=== PATIENT | male | born 1975 | race Caucasian/White ===

== ENCOUNTER 2016-08-17 05:45 | Emergency (ER) | payer MEDICAID ==
[~2016-08-17] VITALS: Ht 170.2 cm; Wt 92.4 kg
[2016-08-17 05:47] VITALS: BP 141/83
[2016-08-17 07:49] LABS: ACETAMINOPHEN < 2 mcg/mL (10-30); BLOOD UREA NITROGEN 17 mg/dL (7-18)
[2016-08-17 08:13] LABS: DAU SCREEN DISCLAIMER
== END 2016-08-17 09:27 | disposition home or self-care (01) ==
LOC: ED 07:33
DX: F32.0 Major depressive disorder, single episode, mild (principal); Z59.0 Homelessness; Z87.891 Personal history of nicotine dependence
CPT/HCPCS: 36415; 80048; 80307; 80329; 82040; 85025; 99284; G0480

== ENCOUNTER 2016-09-01 20:43 | Observation (INO) | payer MEDICAID ==
[~2016-09-01] VITALS: Ht 167.6 cm; Wt 74.0 kg
[2016-09-01 22:39] LABS: BLOOD UREA NITROGEN 17 mg/dL (7-18)
[2016-09-01 22:42] LABS: ACETAMINOPHEN < 2 mcg/mL (10-30)
[2016-09-02 03:49] LABS: DAU SCREEN DISCLAIMER
[2016-09-02] MEDS ORDERED: ONDANSETRON ODT 4 MG PO PRN (06:00)
[2016-09-02] MEDS ORDERED: ACETAMINOPHEN 325 MG TABLET PO PRN (06:00)
[2016-09-02] MEDS ORDERED: DOCUSATE 100 MG CAPSULE PO PRN (06:00)
[2016-09-02] MEDS ORDERED: RISP2TAB3 PO (06:07)
[2016-09-02] MEDS ORDERED: ZIPR20VI IM (06:07)
[2016-09-02] MEDS ORDERED: LORA2TAB99 PO (06:07)
[2016-09-02 06:24] VITALS: BP 120/81
[2016-09-02] MEDS: RISPERIDONE 2 MG TABLET PO SCH ×2 (08:54→20:55)
[2016-09-02 19:31] VITALS: BP 116/74
[2016-09-03 07:35] VITALS: BP 113/71
[2016-09-03] MEDS: RISPERIDONE 2 MG TABLET PO SCH ×2 (08:09→21:07)
[2016-09-03 19:53] VITALS: BP_SYST 106; BP_SYST 142; BP_DIAS 66; BP_DIAS 84
[2016-09-04 08:06] VITALS: BP 108/70
[2016-09-04] MEDS: RISPERIDONE 2 MG TABLET PO SCH ×2 (10:34→21:00)
[2016-09-04 20:27] VITALS: BP 114/71
[2016-09-04] MEDS: DIPHENHYDRAMINE 50 MG CAPSULE PO PRN (22:39)
[2016-09-05 08:15] VITALS: BP 121/77
[2016-09-05] MEDS: RISPERIDONE 2 MG TABLET PO SCH ×2 (09:30→21:31)
[2016-09-05 19:41] VITALS: BP 120/61
[2016-09-05] MEDS: DIPHENHYDRAMINE 50 MG CAPSULE PO PRN (21:31)
[2016-09-06 08:00] VITALS: BP 126/85
[2016-09-06] MEDS: RISPERIDONE 2 MG TABLET PO SCH ×2 (09:09→20:17)
[2016-09-06 20:00] VITALS: BP 132/77
[2016-09-07 07:19] VITALS: BP 125/78
[2016-09-07] MEDS: RISPERIDONE 2 MG TABLET PO SCH ×2 (08:30→21:02)
[2016-09-07 19:59] VITALS: BP 120/79
[2016-09-08] MEDS: RISPERIDONE 2 MG TABLET PO SCH (09:08)
[2016-09-08 19:32] VITALS: BP 121/75
[2016-09-08] MEDS: RISPERIDONE 1 MG TABLET PO SCH (20:19)
[2016-09-09 07:21] VITALS: BP 116/69
[2016-09-09] MEDS: RISPERIDONE 1 MG TABLET PO SCH ×2 (09:01→20:29)
[2016-09-09 19:42] VITALS: BP 111/70
[2016-09-09] MEDS: DIPHENHYDRAMINE 50 MG CAPSULE PO PRN (21:32)
[2016-09-10 07:52] VITALS: BP 108/71
[2016-09-10] MEDS: RISPERIDONE 1 MG TABLET PO SCH ×2 (08:20→21:52)
[2016-09-10] MEDS: DIPHENHYDRAMINE 50 MG CAPSULE PO PRN (08:20)
[2016-09-10] MEDS ORDERED: TRAZODONE 50MG TABLET PO PRN (16:00)
[2016-09-10] MEDS ORDERED: ONDANSETRON ODT 4 MG PO PRN (19:30)
[2016-09-10] MEDS ORDERED: DOCUSATE 100 MG CAPSULE PO PRN (19:30)
[2016-09-10] MEDS ORDERED: ACETAMINOPHEN 325 MG TABLET PO PRN (19:30)
[2016-09-10 19:45] VITALS: BP 113/70
[2016-09-10] MEDS: TRAZODONE 50MG TABLET PO PRN (22:29)
[2016-09-11 08:18] VITALS: BP 107/70
[2016-09-11] MEDS: RISPERIDONE 1 MG TABLET PO SCH ×2 (09:18→21:49)
[2016-09-11 19:57] VITALS: BP 122/72
[2016-09-11] MEDS: TRAZODONE 50MG TABLET PO PRN (22:22)
== END 2016-09-12 08:31 ==
LOC: ED 23:59 → EDIP 09-02 05:08 → 3E 09-02 06:23
PROVIDERS: ADMIT Family Medicine; ATTEND Hospitalist
DX: R45.851 Suicidal ideations (principal); F25.9 Schizoaffective disorder, unspecified; F11.90 Opioid use, unspecified, uncomplicated; F15.10 Other stimulant abuse, uncomplicated; Z91.14 Patient's other noncompliance with medication regimen; Z59.0 Homelessness
CPT/HCPCS: 36415; 80048; 80307; 80329; 82040; 85025; 99285; G0378; G0480